=== PATIENT | female | born 1995 | race Caucasian/White ===

== ENCOUNTER 2016-12-20 14:48 | Emergency (ER) | payer OTHER ==
--- NOTE | 2016-12-20 16:00 | ED CLINICAL REPORT ---
Clinical Report - Physicians/Mid Levels Formerly [facility] [address] [place] [address] 12/20/2016 14:50 Patient: JUSTO PRESTON Time Seen: 15:05 Dec 20 2016. Arrived- By private vehicle. Historian- patient. HISTORY OF PRESENT ILLNESS Chief Complaint: SKIN RASH. This started just prior to arrival and is still present. It is described as itchy. It has been located on the left hand. (swelling of the left hand just prior to arrival, while outside. Able to remove some of the rings, however not all. No trauma. NO rash . NO h/o similar. RHD). REVIEW OF SYSTEMS No fever, lump in throat or diarrhea. All systems otherwise negative, except as recorded above. PAST HISTORY Problems: Dislocation-Lower Extremity. Patellar Dislocation. UTI - Urinary Tract Infection. Pyelonephritis. Immunizations. Back Pain. Dislocation of knee. Tetanus Status. Conjunctivitis. LNMP - Last Normal Menstrual Period. Additional Surgeries: Dental Surgery. Dislocated knee. Knee Surgery. Medications: None. Allergies: Percocet. SOCIAL HISTORY Never smoker. No alcohol use or drug use. ADDITIONAL NOTES The nursing notes have been reviewed. PHYSICAL EXAM Vital Signs: 12/20/2016 14:59 BP: 130/86. HR: 110. RR: 16. O2 saturation: 99%. Temp: 97.7 F. Pain level now: 0/10. Appearance: Alert. CVS: Heart sounds normal. Respiratory: No respiratory distress. Breath sounds normal. Skin: Skin warm. No tender indurated area. No cellulitis. Rash present on the left upper extremity (signs of swelling to hand/ digits, mild pink erythema, no warmth, no lesions). No abscess. Extremities: (Full rom flexionn/ extension of all 5 digits of left hand, no loss of sensation.). PROGRESS AND PROCEDURES Course of Care: left minute and dull finger with ring in place with swelling, and removed. Swelling and minimal erythema has improved. Likely reaction to an unknown substance. Patient with no other complications improvement of symptoms. Received Benadryl, Pepcid and dexamethasone in the emergency department by mouth. Patient is stable. Physical exam findings are improved. Symptoms better. Patient/family counseled. Disposition: Discharged. Condition: good. CLINICAL IMPRESSION Localized allergic reaction. INSTRUCTIONS OTC Medications: Take Benadryl according to label instructions. Available over the counter. Follow-up: Follow up with your doctor as needed. (Electronically signed by Starla Nathan P.A.-C 12/20/2016 16:40)
--- NOTE | 2016-12-20 16:00 | ED CLINICAL REPORT ---
Clinical Report - Physicians/Mid Levels [facility] [address] [place] [address] 12/20/2016 14:50 Patient: JUSTO PRESTON Time Seen: 15:05 Dec 20 2016. Arrived- By private vehicle. Historian- patient. HISTORY OF PRESENT ILLNESS Chief Complaint: SKIN RASH. This started just prior to arrival and is still present. It is described as itchy. It has been located on the left hand. (swelling of the left hand just prior to arrival, while outside. Able to remove some of the rings, however not all. No trauma. NO rash . NO h/o similar. RHD). REVIEW OF SYSTEMS No fever, lump in throat or diarrhea. All systems otherwise negative, except as recorded above. PAST HISTORY Problems: Dislocation-Lower Extremity. Patellar Dislocation. UTI - Urinary Tract Infection. Pyelonephritis. Immunizations. Back Pain. Dislocation of knee. Tetanus Status. Conjunctivitis. LNMP - Last Normal Menstrual Period. Additional Surgeries: Dental Surgery. Dislocated knee. Knee Surgery. Medications: None. Allergies: Percocet. SOCIAL HISTORY Never smoker. No alcohol use or drug use. ADDITIONAL NOTES The nursing notes have been reviewed. PHYSICAL EXAM Vital Signs: 12/20/2016 14:59 BP: 130/86. HR: 110. RR: 16. O2 saturation: 99%. Temp: 97.7 F. Pain level now: 0/10. Appearance: Alert. CVS: Heart sounds normal. Respiratory: No respiratory distress. Breath sounds normal. Skin: Skin warm. No tender indurated area. No cellulitis. Rash present on the left upper extremity (signs of swelling to hand/ digits, mild pink erythema, no warmth, no lesions). No abscess. Extremities: (Full rom flexionn/ extension of all 5 digits of left hand, no loss of sensation.). PROGRESS AND PROCEDURES Course of Care: left minute and dull finger with ring in place with swelling, and removed. Swelling and minimal erythema has improved. Likely reaction to an unknown substance. Patient with no other complications improvement of symptoms. Received Benadryl, Pepcid and dexamethasone in the emergency department by mouth. Patient is stable. Physical exam findings are improved. Symptoms better. Patient/family counseled. Disposition: Discharged. Condition: good. CLINICAL IMPRESSION Localized allergic reaction. INSTRUCTIONS OTC Medications: Take Benadryl according to label instructions. Available over the counter. Follow-up: Follow up with your doctor as needed. (Electronically signed by Starla Nathan P.A.-C 12/20/2016 16:40)
--- NOTE | 2016-12-20 16:00 | ED ORDER SUMMARY ---
..... Patient: JUSTO PRESTON OrderSheet [facility] VisitID: [id number] [place] [address] 21y, F Registration Date/Time: 12/20/2016 ORDER SHEET Weight: 136.9 kg (stated) Allergies: Percocet GENERAL ORDERS: Ice (15:44 12/20/2016 EKoroleva P.A.-C) (15:52 KKnebel R.N.) MEDICATION ORDERS: Benadryl PO 50 mg (NOW) (15:01 12/20/2016 EKoroleva P.A.-C) (15:11 KKnebel R.N.) Pepcid PO 40 mg (NOW) (15:01 12/20/2016 EKoroleva P.A.-C) (15:11 KKnebel R.N.) Dexamethasone PO 6 mg (NOW) (15:01 12/20/2016 EKoroleva P.A.-C) (15:11 KKnebel R.N.) IV FLUIDS: ORDER SHEET NOTES: [Electronically signed by Starla Nathan PKelechiAKelechi-C (16:40 12/20/2016)] [Electronically signed by Stacie Mcfadden R.N. (19:05 12/20/2016)] [Electronically locked/signed by Stacie Mcfadden R.N. (19:05 12/20/2016)]
--- NOTE | 2016-12-20 16:00 | ED ORDER SUMMARY ---
..... Patient: JUSTO PRESTON OrderSheet VisitID: [id number] [place] [address] 21y, F Registration Date/Time: 12/20/2016 ORDER SHEET Weight: 136.9 kg (stated) Allergies: Percocet GENERAL ORDERS: Ice (15:44 12/20/2016 EKoroleva P.A.-C) (15:52 KKnebel R.N.) MEDICATION ORDERS: Benadryl PO 50 mg (NOW) (15:01 12/20/2016 EKoroleva P.A.-C) (15:11 KKnebel R.N.) Pepcid PO 40 mg (NOW) (15:01 12/20/2016 EKoroleva P.A.-C) (15:11 KKnebel R.N.) Dexamethasone PO 6 mg (NOW) (15:01 12/20/2016 EKoroleva P.A.-C) (15:11 KKnebel R.N.) IV FLUIDS: ORDER SHEET NOTES: [Electronically signed by Starla Nathan PKelechiAKelechi-C (16:40 12/20/2016)] [Electronically signed by Stacie Mcfadden R.N. (19:05 12/20/2016)] [Electronically locked/signed by Stacie Mcfadden R.N. (19:05 12/20/2016)]
--- NOTE | 2016-12-20 16:00 | ED NURSING NOTES ---
Clinical Report - Nurses [facility] [address] [place] [address] 12/20/2016 14:50 Patient: JUSTO PRESTON TRIAGE Triage time 14:55 Dec 20 2016. Acuity: LEVEL 4. Chief Complaint: LEFT UPPER EXTREMITY SWELLING. Alert. No acute distress. SEPSIS SCREEN: Sepsis Screen. Negative (no infection suspected/documented). LEFTY COMA SCORE: [place] Coma Scale: 15- eyes open spontaneously (4); best verbal response- oriented x 4 (5); best motor response- obeys commands (6). --15:03 Stacie Mcfadden R.N. 14:59 12/20/16. BP: 130/86. HR: 110. RR: 16. O2 saturation: 99%. Temp: 97.7 F. Pain level now: 0/10. --15:03 Stacie Mcfadden R.N. Weight: 136.9 kg stated. Height/Length: 65 inches Per Patient. BMI: 50.3. --15:02 Stacie Mcfadden R.N. Medications None. --15:00 Stacie Mcfadden R.N. Allergies Percocet. --15:00 Stacie Mcfadden R.N. History Arrived by private vehicle. Historian: family. Accompanied by family. No injury occurred. This occurred just prior to arrival. ( dizzy, nausea). Treatment [employer]PER[employer]OR: (zyrtec). PAST MEDICAL HX: Tetanus status: up-to-date. Immunizations: up-to-date. Last normal menstrual period was 2 weeks ago. Uses depo injections. SOCIAL HX: Never smoker. No alcohol use or drug use. No infectious disease exposure. SELF HARM ASSESSMENT: A self harm assessment was performed. The patient answered "no" to the question "Do you have thoughts of harming or killing yourself?" and "Have you recently had thoughts about harming or killing others?". FALL RISK ASSESSMENT: Fall risk assessment completed. No fall risk identified. NUTRITIONAL RISK ASSESSMENT: The nutritional risk assessment revealed no deficiencies. FUNCTIONAL ASSESSMENT: Functional assessment: no impairments noted. LEARNING NEEDS ASSESSMENT: The learning needs assessment revealed no barriers. ABUSE ASSESSMENT: Abuse assessment: The patient was asked "Do you feel safe in your home?". SKIN INTEGRITY ASSESSMENT: Skin integrity risk assessment completed. No skin integrity risk identified. --15:03 Stacie Mcfadden R.N. PROBLEMS: Dislocation-Lower Extremity. Patellar Dislocation. UTI - Urinary Tract Infection. Pyelonephritis. Back Pain. Dislocation of knee. Tetanus Status. Conjunctivitis. LNMP - Last Normal Menstrual Period. --15: Stacie Mcfadden R.N. ADDITIONAL SURGERIES: Dental Surgery. Dislocated knee. Knee Surgery. --15: Stacie Mcfadden R.N. Interventions ID band on patient. To room. --15:03 Stacie Mcfadden R.N. PHYSICAL ASSESSMENT Ambulatory to room. GENERAL / NEURO / PSYCH: Oriented X 4. Alert. Appears in no acute distress. EXTREMITIES: Extremities exhibit normal ROM. Neuro-vascular status intact to the extremity. No upper extremity edema. Skin is non-tender on the extremities. Left middle finger: swelling. SKIN: Skin is warm and dry. --15:04 Stcaie Mcfadden R.N. NURSING PROGRESS NOTES Patient gowned. Patient identifiers checked. Call light placed in reach. Bed placed in lowest position. Brakes of bed on. --15:04 Stacie Mcfadden R.N. 15:11 12/20/2016 Benadryl (DiphenhydrAMINE HCl) PO Capsules 50 mg given. Allergies verified, confirmed 5 rights and sedative warning given to the patient. --15:11 Stacie Mcfadden R.N. 15:11 12/20/2016 Pepcid (Famotidine) PO Tablets 40 mg given. Allergies verified and confirmed 5 rights. --15:11 Stacie Mcfadden R.N. 15:12/20/2016 Dexamethasone (Dexamethasone) PO Tablets 6 mg given. Allergies verified and confirmed 5 rights. --15:11 Satcie Mcfadden R.N. ( Attempted to work ring off lt middle finger with string. Failed attempt. Pt up to the sink using soap on the finger/ring.). --15:14 Iona Lowry R.N. 15:24 12/20/16. ( Ring cut off lt middle finger, with ring cutting tools). --15:24 Iona Lowry R.N. The patient is calm and resting quietly. Overall patient status is improved- she states feels better. GENERAL / NEURO / PSYCH: The patient reports pain that is located in the left third finger that is mild in severity. Alert. Oriented X 4. RESPIRATORY: No respiratory distress. CVS: Capillary refill less than 2 seconds. GI / : Denies nausea. EXTREMITIES: Neuro-vascular status intact to the extremity. SKIN: Skin is warm and dry. ( pt states that her finger is a little sore from trying to get ring off. Swelling looks better to fingers and hand.). --15:44 Stacie Mcfadden R.N. 15:41 12/20/16. BP: 109/79. HR: 111. RR: 16. O2 saturation: 99%. Pain level now: 06/26. --15:44 Stacie Mcfadden R.N. ( ice pack provided to patient for left hand). --15:55 Stacie Mcfadden R.N. DISPOSITION / DISCHARGE Departure time: 16:00 Dec 20 2016. Condition at departure: improved. No learning barriers present. Discharge instructions provided and reviewed with the patient. Reviewed medication(s) side effects, precautions, dosing and course information. Reviewed referral to a primary care physician for followup. Patient verbalized understanding. Written instructions provided in Korean. The patient was discharged home and accompanied by parent. She left the Emergency Department ambulatory and via private vehicle. Parent driving. FALL RISK ASSESSMENT: Fall risk assessment completed. No fall risk identified. --16:11 Stacie Mcfadden R.N. 15:41 12/20/16. BP: 109/79. HR: 111. RR: 16. O2 saturation: 99%. Pain level now: 06/26. --16:11 Stacie Mcfadden R.N. Locked/Released at 12/20/2016 19:05 by Stacie Mcfadden R.N.
--- NOTE | 2016-12-20 19:05 | ED MED RECONCILIATION SUMMARY ---
Patient: JUSTO PRESTON Medication Reconciliation Report [facility] VisitID: [id number] [address] [place] [address] 21y, F Registration Date/Time: 12/20/2016 Weight: 136.9 kg Height/Length: 65 in. BMI: 50.3 ALLERGIES: Percocet The patient's Home Medications are listed below: NONE. The source(s) of the original Home Medication information: Not obtained. The following Medications were given to the patient in the Emergency Department: Benadryl [PO] PO 50 mg, administered: 12/20/2016 3:11:00 PM Pepcid [PO] PO 40 mg, administered: 12/20/2016 3:11:00 PM Dexamethasone [PO] PO 6 mg, administered: 12/20/2016 3:11:00 PM The following Medications were prescribed to the patient: Take Benadryl according to label instructions. Available over the counter. -- Starla Nathan PKelechiAAlexC
--- NOTE | 2016-12-20 19:05 | ED MED RECONCILIATION SUMMARY ---
Patient: JUSTO PRESTON Medication Reconciliation Report [facility] VisitID: [id number] [address] [place] [address] 21y, F Registration Date/Time: 12/20/2016 Weight: 136.9 kg Height/Length: 65 in. BMI: 50.3 ALLERGIES: Percocet The patient's Home Medications are listed below: NONE. The source(s) of the original Home Medication information: Not obtained. The following Medications were given to the patient in the Emergency Department: Benadryl [PO] PO 50 mg, administered: 12/20/2016 3:11:00 PM Pepcid [PO] PO 40 mg, administered: 12/20/2016 3:11:00 PM Dexamethasone [PO] PO 6 mg, administered: 12/20/2016 3:11:00 PM The following Medications were prescribed to the patient: Take Benadryl according to label instructions. Available over the counter. -- Starla Nathan PKelechiAAlexC
--- NOTE | 2016-12-20 19:05 | ED MAR SUMMARY ---
..... Medication Administration Record [facility] [address] [place] [address] Patient: JUSTO PRESTON Visit ID: [id number] 21y, F Weight: 136.9 kg Height/Length: 65 in BMI: 50.3 ALLERGIES: Percocet Given 15:12/20/2016 Stacie Mcfadden RKelechiNKelechi Medication Administered: BENADRYL [PO] (DIPHENHYDRAMINE HCL), Dose: 50 mg Capsules PO. Medication Ordered: Benadryl PO 50 mg (NOW). Given 15:12/20/2016 Stacie Mcfadden, RKelechiNKelechi Medication Administered: PEPCID [PO] (FAMOTIDINE), Dose: 40 mg Tablets PO. Medication Ordered: Pepcid PO 40 mg (NOW). Given 15:12/20/2016 Stacie Mcfadden, R.NKelechi Medication Administered: DEXAMETHASONE [PO] (DEXAMETHASONE), Dose: 6 mg Tablets PO. Medication Ordered: Dexamethasone PO 6 mg (NOW).
--- NOTE | 2016-12-20 19:05 | ED DISCHARGE INSTRUCTIONS ---
Patient: JUSTO PRESTON General Instructions [facility] VisitID: [id number] [place] [address] 21y, F Registration Date/Time: 12/20/2016 Localized allergic reaction. INSTRUCTIONS OTC Medications: Take Benadryl according to label instructions. Available over the counter. Follow-up: Follow up with your doctor as needed. ADDITIONAL INFORMATION Allergic Reaction,Generalized [Other] You are having an allergic reaction. This may cause an itchy rash, dizziness, fainting, trouble breathing or swallowing, and swelling of the face or other parts of the body. This can be caused by exposure to something in your surroundings that you have become sensitive to. This could be due to medicine or food. This could also be due to something you put on your skin or in your hair or something in the air. Often it is not possible to find out exactly what has caused your reaction. The goal of today's treatment is to relieve symptoms. The rash will usually fade over several days, but can sometimes last up to two weeks. Home Care: 1) If you know what you are allergic to, avoid it because future reactions could be worse than this one. 2) Avoid tight clothing and anything that heats up your skin (hot showers/baths, direct sunlight) since heat will make itching worse. 3) An ice pack will relieve local areas of intense itching and redness. Lanacaine cream or Solarcaine spray (or other product containing "benzocaine", available without a prescription) will reduce the itching. 4) Oral Benadryl (diphenhydramine) is an antihistamine available at drug and grocery stores. Unless a prescription antihistamine was given, Benadryl may be used to reduce itching if large areas of the skin are involved. Use lower doses during the daytime and higher doses at bedtime since the drug may make you sleepy. [NOTE: Do not use Benadryl if you have glaucoma or if you are a man with trouble urinating due to an enlarged prostate.] Claritin (loratidine) is an antihistamine that causes less drowsiness and is a good alternative for daytime use. Follow Up Follow Up with your doctor or this facility in two days if your symptoms do not continue to improve. If you had a severe reaction today, or if you have had several mild-moderate allergic reactions in the past, ask your doctor about allergy testing to find out what you are allergic to. If your reaction included dizziness, fainting or trouble breathing or swallowing, ask your doctor about carrying an Allergy Kit (injectable epinephrine) for home use. Get Prompt Medical Attention if any of the following occur: -- Trouble breathing or swallowing -- New or worse swelling in the face, eyelids, lips, mouth, tongue or throat -- Dizziness, weakness or fainting Allergic Reaction, Other [Local] You are having an allergic reaction. This is due to exposure to something you have become sensitive to. This may be a household product, medicine, chemical, soap, cream, cosmetics or jewelry. A sting from an insect (that you were not aware of) can also cause this reaction. Sometimes it is difficult to know exactly what caused this reaction. There may be redness, itching, and swelling. The rash will fade over the next few days. Home Care: If itching is a problem, avoid anything that heats up your skin (hot showers/baths, direct sunlight) since heat will make itching worse. An ice pack (ice cubes in a plastic bag, wrapped in a towel) will reduce local areas of redness and itching. Lanacaine cream or Solarcaine spray (or other product containing "benzocaine") will reduce the itching. Oral Benadryl (diphenhydramine) is an antihistamine available at drug and grocery stores. Unless a prescription antihistamine was given, Benadryl may be used to reduce itching if large areas of the skin are involved. Use lower doses during the daytime and higher doses at bedtime since the drug may make you sleepy. [NOTE: Do not use Benadryl if you have glaucoma or if you are a man with trouble urinating due to an enlarged prostate.] Claritin (loratadine) is an antihistamine that causes less drowsiness and is a good alternative for daytime use. Follow Up with your doctor or this facility in the next two days if your symptoms do not continue to improve. Get Prompt Medical Attention if any of the following occur: Spreading areas of itching, redness or swelling New or worse swelling in the face, eyelids, lips, mouth, throat or tongue Trouble swallowing or breathing Dizziness, weakness or fainting Signs of infection: Spreading redness Increased pain or swelling Fever of 100.4F (38C) or higher, or as directed by your healthcare provider Colored fluid draining from the wound You have been given the following additional information: Allergic Reaction, Other (General) Allergic Reaction, Other (Local) (Electronically signed by Starla Nathan P.A.-C 12/20/2016 16:40)
--- NOTE | 2016-12-20 19:05 | ED MAR SUMMARY ---
..... Medication Administration Record [facility] [address] [place] [address] Patient: JUSTO PRESTON Visit ID: [id number] 21y, F Weight: 136.9 kg Height/Length: 65 in BMI: 50.3 ALLERGIES: Percocet Given 15:12/20/2016 Stacie Mcfadden RKelechiNKelechi Medication Administered: BENADRYL [PO] (DIPHENHYDRAMINE HCL), Dose: 50 mg Capsules PO. Medication Ordered: Benadryl PO 50 mg (NOW). Given 15:12/20/2016 Stacie Mcfadden, RKelechiNKelechi Medication Administered: PEPCID [PO] (FAMOTIDINE), Dose: 40 mg Tablets PO. Medication Ordered: Pepcid PO 40 mg (NOW). Given 15:12/20/2016 Stacie Mcfadden, R.NKelechi Medication Administered: DEXAMETHASONE [PO] (DEXAMETHASONE), Dose: 6 mg Tablets PO. Medication Ordered: Dexamethasone PO 6 mg (NOW).
== END 2016-12-20 16:00 | disposition home or self-care (01) ==
LOC: ED SRH 14:48
DX: T78.40XA Allergy, unspecified, initial encounter (principal); L53.9 Erythematous condition, unspecified